=== PATIENT | female | born 1955 | race Caucasian/White ===

== ENCOUNTER → 2017-07-31 | Outpatient (CLI) | payer MEDICARE, BC | LOC: M PLARAD 08:42 | DX: N28.1 Cyst of kidney, acquired (principal); D30.00 Benign neoplasm of unspecified kidney ==

== ENCOUNTER → 2017-07-31 | Outpatient (CLI) | payer MEDICARE, BC ==
[~2017-07-31] MED LIST: PROHANCE 279.3MG/ML 15ML VIAL (A9576) As Ordered
== END ==
LOC: M RAD 08:39
DX: N32.89 Other specified disorders of bladder (principal); K80.20 Calculus of gallbladder without cholecystitis without obstruction; N28.1 Cyst of kidney, acquired; D30.00 Benign neoplasm of unspecified kidney
CPT/HCPCS: A9576

== ENCOUNTER 2017-08-26 06:58 | Day surgery (SDC) | payer MEDICARE, BC ==
[2017-08-26] MEDS ORDERED: LR 1,000 ML IV ×3 (07:00→10:30)
[2017-08-26] MEDS ORDERED: fentaNYL 100 MCG/2 ML INJECTION (J3010) As Ordered ×3 (07:56→10:17)
[2017-08-26] MEDS ORDERED: PROPOFOL 200 MG/20 ML VIAL As Ordered ×2 (07:56→08:01)
[2017-08-26] MEDS ORDERED: MIDAZOLAM INJ 2 MG/2 ML VIAL (J2250) As Ordered (07:57)
[2017-08-26] MEDS: ceFAZolin SOD 1 GM in D5W MINI-BAG PLUS 50 ML IV (08:46)
[2017-08-26] MEDS ORDERED: GLYCOPYRROLATE INJ 0.2 MG/ML 2 ML VIAL As Ordered (09:40)
[2017-08-26] MEDS ORDERED: KETOROLAC 60 MG/2 ML VIAL (J1885) As Ordered (09:40)
[2017-08-26] MEDS ORDERED: dexameTHASONE 4 MG/ML 1ML VIAL (J1100) As Ordered (09:40)
[2017-08-26] MEDS ORDERED: NEOSTIGMINE 10 MG/10 ML VIAL (J2710) As Ordered (09:40)
[2017-08-26] MEDS ORDERED: ONDANSETRON 4MG/2ML VIAL (J2405) As Ordered ×2 (09:40→10:17)
[2017-08-26] MEDS: BUPIVACAINE/EPIN 0.25% 30 ML VIAL As Ordered (09:50)
[2017-08-26] MEDS ORDERED: ESMOLOL INJ 100MG/10ML VIAL As Ordered (09:57)
[2017-08-26] MEDS ORDERED: PERCOCET 5MG/325MG TAB As Ordered (10:17)
[2017-08-26] MEDS: ONDANSETRON 4MG/2ML VIAL (J2405) IV (10:20)
[2017-08-26] MEDS: fentaNYL 100 MCG/2 ML INJECTION (J3010) IV ×8 (10:20→11:05)
[2017-08-26] MEDS: PERCOCET 5MG/325MG TAB PO ×2 (10:20→10:50)
[2017-08-26] MEDS ORDERED: METOCLOPRAMIDE INJ 10MG/2ML VIAL (J2765) IV (10:30)
[2017-08-26] MEDS ORDERED: MORPHINE 4 MG/ML 1ML VIAL/SYRINGE (J2270) IV (10:30)
[2017-08-26] MEDS ORDERED: ONDANSETRON 4MG/2ML VIAL (J2405) IV (10:30)
[2017-08-26] MEDS ORDERED: NORCO, ANEXSIA 5/325MG TABLET (HYDROcodone/ACETAMINOPHEN) PO (10:30)
== END 2017-08-26 12:52 | disposition home or self-care (01) ==
LOC: M SDC 06:58
DX: K80.18 Calculus of gallbladder with other cholecystitis without obstruction (principal); Z79.82 Long term (current) use of aspirin; F17.210 Nicotine dependence, cigarettes, uncomplicated; R01.1 Cardiac murmur, unspecified; M32.10 Systemic lupus erythematosus, organ or system involvement unspecified; Z79.899 Other long term (current) drug therapy
CPT/HCPCS: 47562

== ENCOUNTER → 2017-11-06 | Outpatient (CLI) | payer MEDICARE, BC | LOC: M PAIN 10:00 | DX: M25.50 Pain in unspecified joint (principal); F17.210 Nicotine dependence, cigarettes, uncomplicated; Z79.891 Long term (current) use of opiate analgesic; Z79.899 Other long term (current) drug therapy; Z90.49 Acquired absence of other specified parts of digestive tract | CPT/HCPCS: G0463 ==